=== PATIENT | female | born 1960 | race Caucasian/White ===

== ENCOUNTER 2020-10-02 10:09 | Inpatient (IN) ==
[2020-09-25 13:35] LABS: Basophils # 0.1 10*3/uL (0.0-0.2); Basophils % 0.7 % (0.0-0.8); Eosinophils # 0.3 10*3/uL (0.0-0.87); Eosinophils % 2.8 % (0.00-10.9); Hemoglobin 11.4 GM/DL (12.0-16.0); Immature Granulocytes % 0.4 %; Immature Granulocytes Absolute 0.05 #; Lymphocytes # 2.6 10*3/uL (1.4-4.0); Lymphocytes % 22.6 % (21.3-54.2); Mean Corpuscular HGB Conc 30.8 GM/DL (32-36); Mean Corpuscular Volume 84.9 FL (87-102); Mean Platelet Volume 10.6 FL (9.6-12.0); Monocytes % 6.5 % (1.7-12.7); Platelet Count 321 T/CUMM (130-400); Red Blood Count 4.36 MC/CUMM (3.8-5.5); Red Cell Distribution Width 16.7 % (9.3-17.3); White Blood Count 11.5 T/CUMM (4-12)
[2020-09-25 14:04] LABS: Albumin 3.4 G/DL (3.4-5.0); Bilirubin,Total 0.8 MG/DL (0.2-1.0); Calcium 9.5 MG/DL (8.5-10.1); Osmolality,Calculated 272.8 MOS/KG (273-304); Risk Ratio 5.11; Total Protein 7.7 G/DL (5.0-7.5); VLDL CHOLESTEROL 33.4 MG/DL
[2020-09-25 14:18] LABS: HIV Antigen/Antibody Result Nonreactive (Nonreactive)
[2020-09-27 14:03] LABS: Bilirubin,Urine Negative (Negative); Blood, Urine Small mg/dL (Negative); Glucose,Urine (UA) Negative (Negative); Ketones,Urine Negative (Negative); Mucus,Urine Few /LPF (Occasional); Nitrite,Urine Negative (Negative); Protein,Urine 30 MG/DL; RBC,Urine 12 /HPF (0-4); Squamous Epithelial Cell,Urine Few /HPF (0-10); Urine Appearance Slightly Hazy (Clear); Urine Color Amber (Yellow); Urine Urobilinogen < 2.0 EU/DL (0.2-1.0); WBC,Urine 20 /HPF (0-6)
[~2020-10-02 10:09] MED LIST: AMPICILLIN/SULBACTAM 3,000 MG in SODIUM CHLORIDE 0.9% 100 ML IV ONE; LACTATED RINGERS 1,000 ML IV SCH
[2020-10-02] MEDS ORDERED: DIAZEPAM 5 MG TABLET PO ONE (10:39)
[2020-10-02] MEDS ORDERED: ACETAMINOPHEN 500 MG TABLET PO ONE (10:39)
[2020-10-02] MEDS ORDERED: FAMOTIDINE 20 MG TABLET PO ONE (10:39)
[2020-10-02] MEDS ORDERED: SCOPOLAMINE 1.5 MG PATCH TRANSDERM ONE ×2 (10:46→10:51)
[2020-10-02] MEDS ORDERED: ROPIVACAINE 0.5% 30 ML VIAL ONE (12:23)
[2020-10-02] MEDS ORDERED: MIDAZOLAM 2 MG/2 ML VIAL ONE (12:27)
[2020-10-02] MEDS ORDERED: fentaNYL 100 MCG/2 ML VIAL ONE ×2 (12:27→14:28)
[2020-10-02] MEDS ORDERED: propofoL 200 MG/20 ML VIAL IV ONE (14:05)
[2020-10-02] MEDS ORDERED: LIDOCAINE 2% 5 ML VIAL ONE (14:05)
[2020-10-02] MEDS ORDERED: ROCURONIUM 50 MG/5 ML VIAL IV ONE (14:05)
[2020-10-02] MEDS ORDERED: ePHEDrine 50 MG/ML VIAL ONE (14:05)
[2020-10-02] MEDS ORDERED: DEXAMETHASONE 4 MG/1 ML VIAL ONE (14:20)
[2020-10-02] MEDS ORDERED: ACETAMINOPHEN 1,000 MG/100 ML VIAL IV ONE (14:20)
[2020-10-02] MEDS ORDERED: KETOROLAC 30 MG/1 ML VIAL ONE (14:20)
[2020-10-02] MEDS ORDERED: ONDANSETRON 4 MG/2 ML VIAL ONE ×2 (14:25)
[2020-10-02] MEDS ORDERED: SEVOFLURANE 1 UNIT/15 MINUTE INH ONE (15:40)
[2020-10-02] MEDS ORDERED: BENZOCAINE/MENTHOL LOZENGE 18/BOX PO PRN (15:54)
[2020-10-02] MEDS ORDERED: LACTATED RINGERS 1,000 ML IV ONE (15:54)
[2020-10-02] MEDS ORDERED: ONDANSETRON 4 MG/2 ML VIAL IV PRN (15:54)
[2020-10-02] MEDS ORDERED: BISACODYL 10 MG SUPP RECTAL PRN (15:54)
[2020-10-02] MEDS ORDERED: ACETAMINOPHEN 325 MG TABLET PO PRN (15:54)
[2020-10-02] MEDS ORDERED: HYDROmorphone 2 MG/1 ML VIAL IV PRN (15:56)
[2020-10-02] MEDS ORDERED: LACTATED RINGERS 1,000 ML IV SCH (16:00)
[2020-10-02 16:18] LABS: Bilirubin,Urine Negative (Negative); Blood, Urine Small mg/dL (Negative); Glucose,Urine (UA) Negative (Negative); Hyaline Casts,Urine 1 /LPF (0-3); Ketones,Urine Negative (Negative); Mucus,Urine Occasional /LPF (Occasional); Nitrite,Urine Negative (Negative); Protein,Urine Negative; RBC,Urine 24 /HPF (0-4); Squamous Epithelial Cell,Urine Occasional /HPF (0-10); Urine Appearance CLEAR (Clear); Urine Color Yellow (Yellow); Urine Specific Gravity 1.013 (1.001-1.035); Urine Urobilinogen < 2.0 EU/DL (0.2-1.0); WBC,Urine 2 /HPF (0-6)
[2020-10-02] MEDS ORDERED: PROMETHAZINE INJ 12.5 MG in SODIUM CHLORIDE 0.9% 50 ML IV ONE (16:29)
[2020-10-02] MEDS ORDERED: PROMETHAZINE 25 MG/1 ML VIAL ONE (16:29)
[2020-10-02] MEDS ORDERED: INFLUENZA VIRUS VACCINE 0.5 ML SYRINGE IM ONE (17:26)
[2020-10-02] MEDS: KETOROLAC 30 MG/1 ML VIAL IV PRN (20:26)
[2020-10-02] MEDS: ESCITALOPRAM 10 MG TABLET PO SCH (21:20)
[2020-10-02] MEDS ORDERED: ceFAZolin 1,000 MG in SYRINGE 1 EACH IV SCH (22:00)
[2020-10-02] MEDS: ceFAZolin 2,000 MG in PREMIX 1 EACH IV SCH (22:12)
[2020-10-02 22:53] LABS: Basophils % 0.2 % (0.0-0.8); Eosinophils % 0.2 % (0.00-10.9); Hematocrit 32.6 VOL% (35.7-47.0); Immature Granulocytes % 0.6 %; Immature Granulocytes Absolute 0.08 #; Lymphocytes # 0.9 10*3/uL (1.4-4.0); Lymphocytes % 6.8 % (21.3-54.2); Mean Corpuscular HGB Conc 30.7 GM/DL (32-36); Mean Corpuscular Volume 86.5 FL (87-102); Mean Platelet Volume 9.8 FL (9.6-12.0); Monocytes % 0.8 % (1.7-12.7); Neutrophils % 91.4 % (38.7-73.9); Platelet Count 270 T/CUMM (130-400); Red Blood Count 3.77 MC/CUMM (3.8-5.5); Red Cell Distribution Width 16.3 % (9.3-17.3); White Blood Count 12.5 T/CUMM (4-12)
[2020-10-02 23:25] LABS: Lymphocytes 7 % (20-55); Segmented Neutrophils 92 % (50-85); Total Cells Counted 100
[2020-10-02 23:36] LABS: Hypochromasia 1+
[2020-10-03] MEDS ORDERED: ceFAZolin 1,000 MG in SYRINGE 1 EACH IV SCH
[2020-10-03] MEDS: ceFAZolin 2,000 MG in PREMIX 1 EACH IV SCH (05:49)
[2020-10-03 06:11] LABS: Basophils % 0.3 % (0.0-0.8); Eosinophils % 0.1 % (0.00-10.9); Hematocrit 29.9 VOL% (35.7-47.0); Hemoglobin 9.4 GM/DL (12.0-16.0); Immature Granulocytes % 0.7 %; Immature Granulocytes Absolute 0.08 #; Lymphocytes # 1.3 10*3/uL (1.4-4.0); Lymphocytes % 10.8 % (21.3-54.2); Mean Corpuscular HGB Conc 31.4 GM/DL (32-36); Mean Corpuscular Volume 85.4 FL (87-102); Mean Platelet Volume 10.3 FL (9.6-12.0); Monocytes % 5.1 % (1.7-12.7); Platelet Count 289 T/CUMM (130-400); Red Cell Distribution Width 16.4 % (9.3-17.3); White Blood Count 11.8 T/CUMM (4-12)
[2020-10-03] MEDS: METOCLOPRAMIDE 10 MG TABLET PO SCH ×3 (07:54→23:38)
[2020-10-03] MEDS ORDERED: OLMESARTAN 20 MG TABLET PO SCH (09:00)
[2020-10-03] MEDS ORDERED: hydroCHLOROthiazide 12.5 MG CAPSULE PO SCH (09:00)
[2020-10-03] MEDS: DOCUSATE SODIUM 100 MG CAPSULE PO PRN ×2 (09:07→21:17)
[2020-10-03] MEDS: FERROUS SULFATE 325 MG TABLET PO SCH (09:07)
[2020-10-03] MEDS: KETOROLAC 30 MG/1 ML VIAL IV PRN (09:15)
[2020-10-03] MEDS: MAGNESIUM HYDROXIDE SUSP 30 ML UDCUP PO PRN ×2 (10:17→23:38)
[2020-10-03] MEDS: IBUPROFEN 800 MG TABLET PO PRN ×2 (14:12→23:38)
[2020-10-03] MEDS ORDERED: SIMETHICONE CHEW 80 MG TABLET PO PRN (14:13)
[2020-10-03] MEDS ORDERED: PANTOPRAZOLE 20 MG TABLET PO SCH (21:00)
[2020-10-03] MEDS: ESCITALOPRAM 10 MG TABLET PO SCH (21:17)
[2020-10-04] MEDS ORDERED: MAGNESIUM CITRATE 300 ML BOTTLE PO ONE (04:13)
[2020-10-04] MEDS ORDERED: CALCIUM CARBONATE CHEW 500 MG TABLET PO PRN (06:50)
[2020-10-04] MEDS: METOCLOPRAMIDE 10 MG TABLET PO SCH (08:16)
[2020-10-04] MEDS: DOCUSATE SODIUM 100 MG CAPSULE PO PRN (08:17)
[2020-10-04] MEDS: FERROUS SULFATE 325 MG TABLET PO SCH (08:17)
[2020-10-04 08:35] VITALS: BP 113/52
== END 2020-10-04 10:30 | disposition home or self-care (01) | DRG 742 ==
LOC: N.OR 10:09 → N.SDSINP 10:09 → N.OB 15:53 → EDSTATUS 10-03 12:00
PROVIDERS: ADMIT Obstetrics & Gynecology; ATTEND Obstetrics & Gynecology

== ENCOUNTER 2021-05-23 06:18 | Observation (INO) ==
[2021-05-23] MEDS ORDERED: ACETAMINOPHEN 500 MG TABLET PO ONE (07:04)
[2021-05-23] MEDS ORDERED: GABAPENTIN 400 MG CAPSULE PO ONE (07:04)
[2021-05-23] MEDS ORDERED: FAMOTIDINE 20 MG TABLET PO ONE (07:04)
[2021-05-23] MEDS ORDERED: SCOPOLAMINE 1.5 MG PATCH TRANSDERM ONE (07:04)
[2021-05-23] MEDS: LACTATED RINGERS 1,000 ML IV SCH (07:20)
[2021-05-23] MEDS ORDERED: ePHEDrine 50 MG/ML VIAL ONE (08:38)
[2021-05-23] MEDS ORDERED: ATROPINE 1 MG/10 ML SYRINGE ONE (08:39)
[2021-05-23] MEDS ORDERED: fentaNYL 100 MCG/2 ML VIAL ONE (08:39)
[2021-05-23] MEDS ORDERED: ROCURONIUM 50 MG/5 ML VIAL IV ONE (09:15)
[2021-05-23] MEDS ORDERED: propofoL 200 MG/20 ML VIAL IV ONE (09:15)
[2021-05-23] MEDS ORDERED: SODIUM CHLORIDE 0.9% 1,000 ML IV ONE (09:15)
[2021-05-23] MEDS ORDERED: PHENYLEPHRINE 1 MG/10 ML SYRINGE IV ONE (09:15)
[2021-05-23] MEDS ORDERED: DEXAMETHASONE 4 MG/1 ML VIAL ONE (09:15)
[2021-05-23] MEDS ORDERED: ONDANSETRON 4 MG/2 ML VIAL ONE (09:15)
[2021-05-23] MEDS ORDERED: SEVOFLURANE 1 UNIT/15 MINUTE INH ONE (09:15)
[2021-05-23] MEDS ORDERED: SUCCINYLCHOLINE 200 MG/10 ML VIAL ONE (09:15)
[2021-05-23] MEDS ORDERED: LIDOCAINE 2% 5 ML VIAL ONE (09:15)
[2021-05-23] MEDS ORDERED: MORPHINE 2 MG/1 ML SYRINGE IV PRN (12:07)
[2021-05-23] MEDS ORDERED: ONDANSETRON 4 MG/2 ML VIAL IV PRN ×2 (12:07→12:17)
[2021-05-23] MEDS ORDERED: clonazePAM 0.5 MG TABLET PO PRN (12:15)
[2021-05-23] MEDS: HYDROmorphone 2 MG/1 ML VIAL IV PRN ×4 (12:20→12:48)
[2021-05-23] MEDS: ceFAZolin 2,000 MG/50 ML DUPLEX IV SCH (18:18)
[2021-05-24] MEDS: ceFAZolin 2,000 MG/50 ML DUPLEX IV SCH (03:14)
[2021-05-24] MEDS: PANTOPRAZOLE 40 MG TABLET PO SCH (17:23)
[2021-05-24] MEDS: LACTATED RINGERS 1,000 ML IV SCH (19:24)
[2021-05-25] MEDS: PANTOPRAZOLE 40 MG TABLET PO SCH (08:22)
[2021-05-25 09:33] VITALS: BP 99/77
== END 2021-05-25 11:45 | disposition home health service (06) ==
LOC: N.3E 06:18 → N.OR 06:18 → N.SDSINP 06:34 → N.3E 13:23
PROVIDERS: ADMIT Surgery; ATTEND Surgery

== ENCOUNTER 2022-07-29 15:03 | Observation (INO) ==
[2022-07-29] MEDS ORDERED: SODIUM CHLORIDE 0.9% 1,000 ML IV STA (16:24)
[2022-07-29] MEDS ORDERED: ONDANSETRON 4 MG/2 ML VIAL IV STA ×2 (16:24→18:56)
[2022-07-29] MEDS ORDERED: HYDROmorphone 1 MG/1 ML SYRINGE IV STA ×2 (16:24→18:56)
[2022-07-29 16:47] LABS: Basophils % 0.4 % (0.0-0.8); Eosinophils # 0.1 10*3/uL (0.0-0.87); Eosinophils % 1.8 % (0.00-10.9); Hematocrit 23.7 VOL% (35.7-47.0); Hemoglobin 7.4 GM/DL (12.0-16.0); Immature Granulocytes % 0.9 %; Immature Granulocytes Absolute 0.05 #; Lymphocytes # 0.6 10*3/uL (1.4-4.0); Lymphocytes % 11.2 % (21.3-54.2); Mean Corpuscular HGB Conc 31.2 GM/DL (32-36); Mean Corpuscular Volume 97.5 FL (87-102); Mean Platelet Volume 9.6 FL (9.6-12.0); Monocytes # 0.5 10*3/uL (0.11-0.8); Monocytes % 8.3 % (1.7-12.7); Neutrophils % 77.4 % (38.7-73.9); Platelet Count 144 T/CUMM (130-400); Red Blood Count 2.43 MC/CUMM (3.8-5.5); Red Cell Distribution Width 16.3 % (9.3-17.3); White Blood Count 5.5 T/CUMM (4-12)
[2022-07-29 17:08] LABS: Alanine Aminotransferase 13 U/L (13-56); Alkaline Phosphatase 99 U/L (45-117); Aspartate Amino Transferase 12 U/L (0-37); Bilirubin,Total < 0.39 MG/DL (0.20-1.00); Blood Urea Nitrogen 24 MG/DL (7-18); Calcium 9.1 MG/DL (8.5-10.1); Carbon Dioxide 30 MMOL/L (21-32); Chloride 106 MMOL/L (98-107); Glucose 153 MG/DL (74-106); Osmolality,Calculated 287.3 MOS/KG (273-304); Sodium 141 MMOL/L (136-145); Total Protein 6.8 G/DL (6.4-8.2)
[2022-07-29 18:31] LABS: Bilirubin,Urine Negative (Negative); Blood, Urine Negative (Negative); Glucose,Urine (UA) Negative (Negative); Ketones,Urine Negative (Negative); Mucus,Urine Occasional /LPF (Occasional); Nitrite,Urine Negative (Negative); Protein,Urine Trace mg/dL (Negative); Squamous Epithelial Cell,Urine Occasional /HPF (0-10); Urine Appearance Clear (Clear); Urine Color Yellow (Yellow); Urine Specific Gravity <= 1.005 (1.001-1.035); Urine Urobilinogen 0.2 eU/dL (<2.0)
[2022-07-29] MEDS ORDERED: TISSUE ADHESIVE 1 EACH APPLICATOR TOP ONE (19:15)
[2022-07-29] MEDS ORDERED: LACTULOSE 20 GM/30 ML UDCUP PO PRN (20:00)
[2022-07-29] MEDS ORDERED: ACETAMINOPHEN 325 MG TABLET PO PRN (21:14)
[2022-07-29] MEDS ORDERED: clonazePAM 0.5 MG TABLET PO PRN (21:17)
[2022-07-29] MEDS: DOCUSATE SODIUM 100 MG CAPSULE PO SCH (21:21)
[2022-07-29] MEDS: LUBIPROSTONE 8 MCG CAPSULE PO SCH (21:21)
[2022-07-29] MEDS: POLYETHYLENE GLYCOL POWDER 17 GM PACK PO SCH ×2 (21:21→23:29)
[2022-07-29] MEDS: HYDROmorphone 1 MG/1 ML SYRINGE IV PRN (22:08)
[2022-07-30] MEDS: HYDROmorphone 1 MG/1 ML SYRINGE IV PRN ×5 (01:24→20:33)
[2022-07-30] MEDS ORDERED: POTASSIUM CHLORIDE 20 MEQ TABLET PO ONE (02:30)
[2022-07-30] MEDS: POLYETHYLENE GLYCOL POWDER 17 GM PACK PO SCH ×5 (04:12→20:33)
[2022-07-30] MEDS: ONDANSETRON 4 MG/2 ML VIAL IV PRN ×2 (04:18→12:27)
[2022-07-30 05:59] LABS: Basophils % 0.6 % (0.0-0.8); Eosinophils # 0.2 10*3/uL (0.0-0.87); Hematocrit 25.6 VOL% (35.7-47.0); Immature Granulocytes % 0.4 %; Immature Granulocytes Absolute 0.02 #; Lymphocytes # 0.7 10*3/uL (1.4-4.0); Lymphocytes % 14.7 % (21.3-54.2); Mean Corpuscular HGB Conc 31.3 GM/DL (32-36); Mean Corpuscular Volume 100.8 FL (87-102); Mean Platelet Volume 10.2 FL (9.6-12.0); Monocytes # 0.5 10*3/uL (0.11-0.8); Monocytes % 9.5 % (1.7-12.7); Neutrophils % 70.8 % (38.7-73.9); Platelet Count 153 T/CUMM (130-400); Red Blood Count 2.54 MC/CUMM (3.8-5.5); Red Cell Distribution Width 16.6 % (9.3-17.3); White Blood Count 4.8 T/CUMM (4-12)
[2022-07-30 06:00] LABS: Basophils % 0.4 % (0.0-0.8); Eosinophils # 0.2 10*3/uL (0.0-0.87); Eosinophils % 3.8 % (0.00-10.9); Hematocrit 26.3 VOL% (35.7-47.0); Hemoglobin 8.2 GM/DL (12.0-16.0); Immature Granulocytes % 0.6 %; Immature Granulocytes Absolute 0.03 #; Lymphocytes # 0.8 10*3/uL (1.4-4.0); Lymphocytes % 15.1 % (21.3-54.2); Mean Corpuscular HGB Conc 31.2 GM/DL (32-36); Mean Corpuscular Volume 100.4 FL (87-102); Mean Platelet Volume 9.9 FL (9.6-12.0); Monocytes # 0.5 10*3/uL (0.11-0.8); Monocytes % 9.4 % (1.7-12.7); Neutrophils % 70.7 % (38.7-73.9); Platelet Count 157 T/CUMM (130-400); Red Blood Count 2.62 MC/CUMM (3.8-5.5); Red Cell Distribution Width 16.6 % (9.3-17.3); White Blood Count 5.2 T/CUMM (4-12)
[2022-07-30 06:18] LABS: % Iron Saturation 18.3 % (18-50); Ferritin 551.5 ng/mL (8-252)
[2022-07-30 06:21] LABS: Folate > 24.00 NG/ML (5.38-24.0); Vitamin B12 589 PG/ML (211-911)
[2022-07-30 06:25] LABS: Alanine Aminotransferase 13 U/L (13-56); Albumin 3.1 G/DL (3.4-5.0); Alkaline Phosphatase 94 U/L (45-117); Aspartate Amino Transferase 20 U/L (0-37); Bilirubin,Total < 0.39 MG/DL (0.20-1.00); Blood Urea Nitrogen 20 MG/DL (7-18); Calcium 9.1 MG/DL (8.5-10.1); Carbon Dioxide 26 MMOL/L (21-32); Chloride 107 MMOL/L (98-107); Glucose 148 MG/DL (74-106); Osmolality,Calculated 286.3 MOS/KG (273-304); Potassium 3.6 MMOL/L (3.5-5.1); Sodium 141 MMOL/L (136-145); Total Protein 6.8 G/DL (6.4-8.2)
[2022-07-30 07:28] LABS: Sedimentation Rate-Westergren 116 MM/HR (0-30)
[2022-07-30] MEDS: LACTULOSE 20 GM/30 ML UDCUP PO SCH ×2 (08:17→20:33)
[2022-07-30] MEDS: LETROZOLE 2.5 MG TABLET PO SCH (08:18)
[2022-07-30] MEDS: LINACLOTIDE 145 MCG CAPSULE PO SCH (08:18)
[2022-07-30] MEDS: DOCUSATE SODIUM 100 MG CAPSULE PO SCH ×2 (08:19→20:33)
[2022-07-30] MEDS: SERTRALINE 100 MG TABLET PO SCH (08:20)
[2022-07-30] MEDS: VENLAFAXINE 75 MG TABLET PO SCH (08:20)
[2022-07-30] MEDS: LUBIPROSTONE 8 MCG CAPSULE PO SCH ×2 (09:40→20:33)
[2022-07-30 10:11] LABS: Hemoglobin A1 (Alkaline) 97.8 % (96.5-98.5); Hemoglobin A2 (Alkaline) 2.2 % (1.5-3.5)
[2022-07-30] MEDS ORDERED: MAGNESIUM CITRATE 300 ML BOTTLE PO ONE (13:05)
[2022-07-30] MEDS ORDERED: METHYLNALTREXONE 12 MG/0.6 ML VIAL SUBCUT ONE (15:00)
[2022-07-30] MEDS ORDERED: PANTOPRAZOLE 40 MG TABLET PO SCH (23:00)
[2022-07-31] MEDS: HYDROmorphone 1 MG/1 ML SYRINGE IV PRN ×3 (01:30→10:54)
[2022-07-31] MEDS: POLYETHYLENE GLYCOL POWDER 17 GM PACK PO SCH ×5 (01:32→17:26)
[2022-07-31] MEDS: LACTULOSE 20 GM/30 ML UDCUP PO SCH (08:26)
[2022-07-31] MEDS: LINACLOTIDE 145 MCG CAPSULE PO SCH (09:16)
[2022-07-31] MEDS: VENLAFAXINE 75 MG TABLET PO SCH (09:17)
[2022-07-31] MEDS: LETROZOLE 2.5 MG TABLET PO SCH (09:17)
[2022-07-31] MEDS: LUBIPROSTONE 8 MCG CAPSULE PO SCH (09:18)
[2022-07-31] MEDS: SERTRALINE 100 MG TABLET PO SCH (09:18)
[2022-07-31] MEDS: DOCUSATE SODIUM 100 MG CAPSULE PO SCH (09:18)
[2022-07-31 12:12] VITALS: BP 121/69
[2022-07-31] MEDS ORDERED: PANTOPRAZOLE 40 MG TABLET PO SCH (21:00)
== END 2022-07-31 14:56 | disposition home or self-care (01) ==
LOC: N.ED 15:03 → N.EDINP 15:03 → N.TELES 20:39
PROVIDERS: ADMIT Emergency Medicine; ATTEND Emergency Medicine